=== PATIENT | female | born 1980 | race Caucasian/White ===

== ENCOUNTER 2018-03-15 11:03 | Emergency (ER) | payer BC ==
[~2018-03-15] VITALS: Ht 152.4 cm; Wt 92.4 kg
[2018-03-15 11:53] LABS: HEMATOCRIT 41.3 % (36.0-46.0); HEMOGLOBIN 14.7 G/DL (11.9-15.5); MCH 29.6 PG (29.0-34.0); MCHC 35.6 G/DL (30.0-36.0); MCV 83.1 FL (83-99); PLATELET COUNT 288 K/uL (156-360); RBC DIS.WIDTH-CV 12.6 % (11.8-14.6); RBC DIS.WIDTH-SD 37.9 % (39-53); RED BLOOD COUNT 4.97 M/uL (3.80-5.20); WHITE BLOOD COUNT 8.2 K/uL (4.1-10.2)
[2018-03-15 12:00] LABS: D-DIMER ELISA < 150.00 ng/mLDDU (<230)
[2018-03-15 12:05] LABS: CHLORIDE 114 mEq/L (99-109); POTASSIUM 3.8 mEq/L (3.7-5.4); SODIUM 143 mEq/L (136-147)
[2018-03-15 12:07] LABS: GLUCOSE 119 mg/dL (70-99)
[2018-03-15 12:09] LABS: TOTAL BILIRUBIN 0.5 mg/dL (0.0-1.0)
[2018-03-15 12:10] LABS: ALKALINE PHOSPHATASE 88 IU/L (3-129)
[2018-03-15 12:11] LABS: CREATININE 0.9 mg/dL (0.6-1.3); GFR ESTIMATE (CALCULATED) > 59 mL/min/
[2018-03-15 12:12] LABS: AST (GOT) 13 IU/L (2-34); UREA NITROGEN (BUN) 14 mg/dL (9-23)
[2018-03-15 12:14] LABS: ALT (GPT) 15 IU/L (3-49); TROP-I INTERPRETATION NEGATIVE; TROPONIN-I < 0.01 ng/mL (0.0-0.30)
[2018-03-15 12:18] LABS: APPEARANCE CLEAR ((CLEAR)); BILIRUBIN NEGATIVE; BLOOD NEGATIVE; COLOR STRAW ((YELLOW)); GLUCOSE (STRIP) NEGATIVE; KETONES NEGATIVE; LEUKOCYTES NEGATIVE; NITRITE NEGATIVE; PROTEIN (STRIP) NEGATIVE; SPECIFIC GRAVITY 1.009 (1.000-1.030); UROBILINOGEN 0.2 MG/DL (0.2-1.0)
[2018-03-15 12:19] LABS: QUANTITATIVE HCG < 4.0 MIU/ML
[2018-03-15 12:27] LABS: AMPHETAMINE PRESUMPTIVE POSITIVE (500 ng/mL); BARBITURATES NEGATIVE (200 ng/mL); BENZODIAZEPINES NEGATIVE (150 ng/mL); BUPRENORPHINE NEGATIVE (10 ng/mL); COCAINE NEGATIVE (150 ng/mL); METHADONE NEGATIVE (200 ng/mL); METHAMPHETAMINE NEGATIVE (500 ng/mL); OPIATES (MORPHINE) NEGATIVE (100 ng/mL); OXYCODONE NEGATIVE (100 ng/mL); PHENCYCLIDINE NEGATIVE (25 ng/mL); PROPOXYPHENE NEGATIVE (300 ng/mL); THC CANNABINOIDS NEGATIVE (50 ng/mL); TRICYCLIC ANTIDEPRESSANTS NEGATIVE (300 ng/mL)
[2018-03-15 13:54] VITALS: BP 106/75
== END 2018-03-15 13:56 | disposition home or self-care (01) ==
LOC: EDBD 11:03 → EXP 11:03 → EME 11:03 → EXP 13:56
PROVIDERS: Nurse Practitioner Family
DX: F43.9 Reaction to severe stress, unspecified (principal); R00.2 Palpitations; R20.2 Paresthesia of skin; E86.0 Dehydration; Z72.0 Tobacco use
CPT/HCPCS: 71046; 80053; 81003; 84484; 84702; 84999; 85027; 85379; 93005